=== PATIENT | female | born 1985 | race Caucasian/White ===

== ENCOUNTER 2021-12-06 12:05 | Emergency (ER) | payer BC ==
[~2021-12-06] VITALS: Ht 167.6 cm; Wt 54.4 kg
[2021-12-06] MEDS ORDERED: BUPR300T52 PO (12:39)
[2021-12-06] MEDS ORDERED: DESV25TA PO (12:39)
--- NOTE | 2021-12-06 13:22 | NUR ---
Patient eloped from facility. ER physician notified.
== END 2021-12-06 13:25 | disposition left against medical advice (07) ==
LOC: ER 12:05
DX: S81.852D Open bite, left lower leg, subsequent encounter (principal); L03.116 Cellulitis of left lower limb; W54.0XXD Bitten by dog, subsequent encounter; E03.9 Hypothyroidism, unspecified; F32.A Depression, unspecified; Z79.899 Other long term (current) drug therapy; Z86.14 Personal history of Methicillin resistant Staphylococcus aureus infection; Z88.5 Allergy status to narcotic agent
CPT/HCPCS: A4663